=== PATIENT | male | born 1965 | race Caucasian/White ===

== ENCOUNTER → 2016-12-19 | Day surgery (SDC) | payer OTHER ==
[~2016-12-19] MED LIST: ACETAMINOPHEN PO; AMLODIPINE BESY10 MG PO; CEFTIN; GABAPENTIN300 MG PO; HYDROCHLOROTH12.5 MG PO; LEVOTHYROXINE25 MCG PO; LISINOPRIL-HCTZ1 T14 PO; LISINOPRIL10 MG PO; LISINOPRIL20 MG PO; PROTONIX PO; ULTRAM PO; VITAMIN D50000 UNIT PO; [UNRECOGNIZED DRUG - OTHER]
--- NOTE | ~2016-12-19 | OR ---
Unit #: [id number] #: [id number] Patient: PIPE ALEXANDER [id number] [address] [id number] O MR#: [id number] NAME: PIPE ALEXANDER ROOM: Date of Procedure: 12/19/2016 Admission Date: 12/19/2016 Surgeon: Delbert Huitron M.D. : 1965 Attending Physician: Delbert Huitron M.D. Primary Care Physician: Gurpreet Villegas Pa-C OPERATIVE REPORT INDICATIONS FOR PROCEDURE Esophagogastroduodenoscopy with biopsy. INDICATIONS FOR PROCEDURE History of chronic GERD, Lyons esophagus, intermittent dysphagia, undergoing evaluation. MEDICATIONS Monitored anesthesia. POSTOPERATIVE FINDINGS 1. Long segment Lyons esophagus between 30 to 38 cm luis miguel. Biopsies were taken at multiple spot 30 to 35 and 36 luis miguel. 2. Large hiatal hernia. 3. Normal stomach. 4. Normal duodenum and distal duodenum. PLAN Continue PPI therapy. Follow up on the pathology report. Repeat upper endoscopy in 3 years unless there is dysphagia. DESCRIPTION OF PROCEDURE The patient was explained of the procedure, risks, and benefits along with the risks and benefits of anesthesia. He was brought to the endoscopy room. Propofol anesthesia was given. Bite block was placed. The scope was passed down the mouth into the esophagus, stomach, duodenum, and distal duodenum. Findings as described. Biopsies taken at multiple levels. Gently, the scope was pulled out. He tolerated it well. No major complications were seen. Dictated by... Alfa Henry/mann TD: 12/19/2016 15:06 JOB #: [id number] Unit #: [id number] #: [id number] Patient: PIPE ALEXANDER OPERATIVE REPORT Page 1 of 1 X Delbert Huitron MD X PROCEDURE OPERATIVE NOTE
== END | disposition home or self-care (01) ==
LOC: COPS 07:43
DX: K21.0 Gastro-esophageal reflux disease with esophagitis (principal); K22.70 Barrett's esophagus without dysplasia; K44.9 Diaphragmatic hernia without obstruction or gangrene; I10 Essential (primary) hypertension; M06.9 Rheumatoid arthritis, unspecified; E03.9 Hypothyroidism, unspecified; F17.210 Nicotine dependence, cigarettes, uncomplicated; Z88.8 Allergy status to other drugs, medicaments and biological substances; Z79.899 Other long term (current) drug therapy; Z96.641 Presence of right artificial hip joint; Z98.890 Other specified postprocedural states
CPT/HCPCS: 88305